=== PATIENT | female | born 1945 | race Caucasian/White ===

== ENCOUNTER 2019-09-22 05:10 | Inpatient (IN) ==
[2019-09-22] MEDS ORDERED: IPRATROPIUM/ALBUTEROL 3 ML AMPUL.NEB NEB ONE ×2 (05:33→14:29)
[2019-09-22] MEDS ORDERED: LACTATED RINGERS 1,000 ML IV ONE (05:33)
[2019-09-22] MEDS ORDERED: methylPREDNISolone SOD SUCC 125 MG/2 ML VIAL IV ONE (05:33)
--- NOTE | 2019-09-22 05:38 | Emergency Department Note ---
SOB HPI - General Chief Complaint: Shortness of Breath/Dyspnea Stated Complaint: SOB Time Seen by Provider: 09/22/19 05:20 Source: patient, family Mode of arrival: ambulatory Limitations: no limitations - History of Present Illness Complains of shortness of breath for the last 2 days. A little bit of chest tightness, she does have a history of COPD, has oxygen at home and uses it at nighttime. Has some body aches, low-grade fever, slight sore throat not associated with nausea vomiting or diarrhea. Denies abdominal pain, no henna chest pain. She did quit smoking the past, was successful for 5 years after hypnosis session in [place], but then started up again and has been smoking since. Now she quit 2 days ago at the first of the year. When she arrived in triage her O2 sats were 70% on room air. She quickly bounced back to now 100% on 2 L of oxygen. Feels much better at this time. does not smoke. Denies headache, denies ear pain, she's had no abdominal pain, no ankle swelling, no history of CHF. MD Complaint: shortness of breath - Related Data Home Medications Medication Instructions Recorded Confirmed albuterol sulfate 90 mcg/actuation 2 puff INHALATION .Q4-6H PRN g 05/08/19 07/25/19 aerosol inhaler cholecalciferol (vitamin D3) 25 1,000 unit PO QDAY 05/08/19 07/25/19 mcg (1,000 unit) capsule hydrochlorothiazide 12.5 mg tablet 12.5 mg PO QAM tab 05/08/19 07/25/19 levothyroxine 88 mcg tablet 88 mcg PO QDAY 05/08/19 07/25/19 multivitamin 1 tab PO QDAY 05/08/19 07/25/19 omega-3 fatty acids 1,000 mg 2,000 mg PO QDAY 05/08/19 07/25/19 capsule primidone 50 mg tablet 50 mg PO .Q2XD tab 05/08/19 07/25/19 sodium chloride 0.65 % nasal spray See Rx Instructions INTRANASAL QHS 05/08/19 07/25/19 aerosol ml umeclidinium 62.5 mcg-vilanterol 1 inh INHALATION Q24H 05/08/19 07/25/19 25 mcg/actuation powdr for inhalation Previous Rx's Medication Instructions Recorded amlodipine 5 mg tablet 5 mg PO QDAY #90 tab 08/16/19 aripiprazole 5 mg tablet 2.5 mg PO QDAY #45 tab 08/16/19 losartan 50 mg tablet 50 mg PO QDAY #90 tab 08/16/19 pravastatin 80 mg tablet 80 mg PO QDAY #90 tab 08/16/19 escitalopram oxalate 20 mg tablet 10 mg PO QDAY #30 tab 09/04/19 Allergies Allergy/AdvReac Type Severity Reaction Status Date / Time cetirizine [From Zyrtec] AdvReac Unknown Palpitation Verified 09/22/19 05:14 s enalaprilat [From Vasotec] AdvReac Unknown Unknown Verified 09/22/19 05:14 Erythromycin Base AdvReac Unknown Hallucinati Verified 09/22/19 06:33 ng Sulfa (Sulfonamide AdvReac Unknown Unknown Verified 09/22/19 05:14 Antibiotics) Review of Systems All systems ED: reviewed and negative except as stated. Constitutional: Reports: fever, weakness ENT ED: Reports: throat pain, congestion, rhinorrhea. Denies: ear pain, dental pain, epistaxis Cardiovascular: Reports: dyspnea on exertion. Denies: chest pain Respiratory: Reports: shortness of breath, cough, other (cough is mainly nonproductive) Gastrointestinal: Denies: abdominal pain, nausea, vomiting Genitourinary: Denies: dysuria Musculoskeletal: Denies: back pain Integumentary: Denies: rash Neurological: Denies: headache Past Medical History - Past Medical History Source: old records reviewed, nursing notes reviewed Medical history: Reports: COPD, hypertension Psychiatric history: Reports: no psych history RETIREMENT ASSISTANT history: Reports: non-contributory Surgical history ED: Reports: non-contributory Family history: Reports: no significant family history - Social History smoking status: Former smoker Alcohol use: Reports: Occasionally Drug use: Reports: none Physical Exam Limitations: no limitations General appearance: alert Head: atraumatic, normocephalic Eye: Present: normal appearance, PERRL, EOMI. Absent: conjunctival injection ENT: Present: normal exam, normal oropharynx Neck: Present: normal inspection, full ROM Chest: Present: normal inspection, symmetric chest wall rise Respiratory: Present: wheezes, accessory muscle use, prolonged expiratory phase, decreased breath sounds. Absent: respiratory distress, rales/crackles Cardiovascular: Present: regular rate, normal rhythm, tachycardia, normal heart sounds Abdominal: Present: soft, normal bowel sounds. Absent: distention, tenderness, guarding Extremities: Present: normal inspection, normal capillary refill. Absent: pedal edema, calf tenderness, cyanosis, clubbing Back: Present: normal inspection. Absent: CVA tenderness (R), CVA tenderness (L), vertebral tenderness Neurological: Present: alert, oriented X3, CN II-XII intact. Absent: motor sensory deficit Psychiatric: Present: normal affect Skin: Present: warm, dry, normal color Course - Reevaluation(s) Reevaluation #1: Chest x-ray consistent with pneumonia, right-sided. Blood cultures were drawn. The. She was started on antibiotics also given Solu-Medrol for wheezing, breathing treatments. The. This did seem to help and the wheezing has improved. She stumbled oxygen at this time. We'll need to get admitted for COPD exacerbation as well as right sided pneumonia. This was discussed with the [facility]. The hospital was full at this time, but they are trying to move some patients, so that we will have roomfor Mrs. Haynes Vital Signs Temperature 99.0 F 09/22/19 05:10 Pulse Rate 111 H 09/22/19 05:10 Respiratory Rate 26 H 09/22/19 05:10 Blood Pressure 162/67 09/22/19 05:10 Pulse Oximetry (%) 77 L 09/22/19 05:10 Temperature 99.0 F 09/22/19 05:10 Pulse Rate 100 H 09/22/19 06:46 Respiratory Rate 21 09/22/19 06:46 Blood Pressure 117/50 09/22/19 06:46 Pulse Oximetry (%) 91 09/22/19 06:46 Shortness of Breath/Dyspnea - MDM Narrative Medical decision making narrative: Impression is pneumonia, right-sided. #2. COPD exacerbation. #3. Hyponatrem ia - Lab Data Lab results reviewed: Yes I reviewed the patient's lab results. Result diagrams: 09/22/19 05:47 09/22/19 05:47 Lab Results 09/22/19 09/22/19 09/22/19 Range/Units 05:47 05:47 06:20 WBC 9.3 (4.50-11.00) K/mcL RBC 4.39 (3.59-5.38) M/mcL Hgb 13.5 (11.2-15.7) g/dL Hct 39.1 (34.1-44.9) % MCV 89.1 (80.0-100.0) fL MCH 30.8 (26.0-34.0) pg MCHC 34.5 (31.0-36.0) g/dL RDW 13.6 (11.5-14.5) % Plt Count 321 (140-440) K/mcL MPV 9.8 (7.4-10.4) fL Gran % 89.4 H (38.0-78.0) % Lymph % (Auto) 6.5 L (15.5-49.0) % [place] % (Auto) 3.1 (1.0-12.0) % Eos % (Auto) 0.8 (0.0-7.0) % Baso % (Auto) 0.2 (0.0-2.0) % Gran # 8.31 H (1.80-8.00) K/mcL Lymph # (Auto) 0.60 L (1.50-4.80) K/mcL [place] # (Auto) 0.29 (0.10-0.90) K/mcL Eos # (Auto) 0.07 (0.00-0.70) K/mcL Baso # (Auto) 0.02 (0.00-0.30) K/mcL VBG Lactic Acid 1.4 (0.5-2.0) mmol/L Sodium 125 L (133-145) mmol/L Potassium 3.6 (3.3-5.1) mmol/L Chloride 87 L (96-108) mmol/L Carbon Dioxide 22 (22-30) mmol/L Anion Gap 16.0 (8-16) BUN 10 (8-23) mg/dl Creatinine 0.7 (0.6-1.1) mg/dl GFR Calculation 86 Glucose 130 H (70-105) mg/dL Calcium 9.4 (8.6-10.4) mg/dl Total Bilirubin 0.3 (0.0-1.0) mg/dL AST 29 (0-37) U/l ALT 18 (0-40) U/l Alkaline Phosphatase 72 (39-117) U/L C-Reactive Protein 16.5 H (0.0-0.8) mg/dl Total Protein 7.7 (5.9-8.4) gm/dL Albumin 4.4 (3.2-5.2) gm/dL Globulin 3.3 (2.2-3.7) gm/dL Albumin/Globulin Ratio 1.3 (1.0-2.3) - Radiology Data Radiology results reviewed: Yes I reviewed the patient's radiology results. Disposition Pt seen by STAFFING OPERATIONS MANAGER/PA only: No Clinical Impression: Community acquired pneumonia, Acute exacerbation of chronic obstructive airways disease, Hyponatremia Disposition: Xfer As Inpt ([facility]) Condition: Fair Referrals: Chiquita Carrillo ARNP [Primary Care Provider] -
[2019-09-22] MEDS ORDERED: cefTRIAXone 1 GM VIAL IV ONE ×2 (06:20→14:45)
[2019-09-22] MEDS ORDERED: AZITHROMYCIN 500 MG in DEXTROSE 5% IN WATER 250 ML IV ONE (06:20)
[2019-09-22 06:25] LABS: Basophils # (Auto) 0.02 K/mcL (0.00-0.30); Basophils % (Auto) 0.2 % (0.0-2.0); Eosinophils # (Auto) 0.07 K/mcL (0.00-0.70); Eosinophils % (Auto) 0.8 % (0.0-7.0); Granulocytes % (Auto) 89.4 % (38.0-78.0); Hematocrit 39.1 % (34.1-44.9); Hemoglobin 13.5 g/dL (11.2-15.7); Lymphocytes % (Auto) 6.5 % (15.5-49.0); Mean Cell Volume 89.1 fL (80.0-100.0); Mean Corpuscular HGB Conc 34.5 g/dL (31.0-36.0); Mean Platelet Volume 9.8 fL (7.4-10.4); Monocytes # (Auto) 0.29 K/mcL (0.10-0.90); Monocytes % (Auto) 3.1 % (1.0-12.0); Platelet Count 321 K/mcL (140-440); RBC 4.39 M/mcL (3.59-5.38); Red Cell Distribution Width 13.6 % (11.5-14.5); WBC 9.3 K/mcL (4.50-11.00)
--- NOTE | 2019-09-22 06:26 | XRay Report ---
CLINICAL INFORMATION: dyspnea COMPARISON: None. FINDINGS: Heart size, mediastinum and pulmonary vessels are unremarkable. There are large patchy alveolar infiltrates throughout the right upper, superior right lower and middle lobes. Small right pleural effusion noted. Left lung shows only mild subsegmental atelectasis in the lower lobe. Bones and soft tissues are unremarkable. IMPRESSION: Large patchy alveolar infiltrate throughout the right upper lobe, superior segment right lower lobe and right middle lobe. Interpreted and Authenticated by: Isaias Davidson 09/22/19
[2019-09-22 06:49] LABS: ALT/SGPT 18 U/l (0-40); AST/SGOT 29 U/l (0-37); Albumin 4.4 gm/dL (3.2-5.2); Albumin/Globulin Ratio 1.3 (1.0-2.3); Alkaline Phosphatase 72 U/L (39-117); Bilirubin,Total 0.3 mg/dL (0.0-1.0); Blood Urea Nitrogen 10 mg/dl (8-23); C-Reactive Protein 16.5 mg/dl (0.0-0.8); Calcium 9.4 mg/dl (8.6-10.4); Carbon Dioxide 22 mmol/L (22-30); Chloride 87 mmol/L (96-108); Globulin 3.3 gm/dL (2.2-3.7); Glomerular Filtration Rate 86; Glucose 130 mg/dL (70-105)
[2019-09-22] MEDS ORDERED: 0.9 % SODIUM CHLORIDE 1,000 ML IV SCH (08:00)
--- NOTE | 2019-09-22 11:27 | Emergency Department Note ---
ED Note Addendum Note Addendum: Received this patient in checkout from Dr. Jaime. Agree with his decision to admit after reviewing her chart. Hospitalist was contacted
--- NOTE | 2019-09-22 13:04 | Internal Med History&Physical ---
Medical - H&P: HPI Patient information: Note initiated : 09/22/19 at 1:01 pm Service Date, if different from initiated Date: [] Patient: Marielos Haynes a 74 y/o F admitted on for Shortness of breath. Chief Complaint: [] History of present illness: Ms. Haynes is a 74 year old F Who states that she felt like she was developing a cold monitor Wednesday and Wednesday she developed a productive cough of yellow sputum and increased shortness of breath this continued to worsen she slept poorly last night and with the worsening shortness of breath she called her son who brought her into the ED. She had oxygen saturations 70 was 77% initially. She responded initially to treatments in the ED but still required oxygen supplementation to maintain saturations. She has had a son and a grandson that is been sick. Is felt feverish Chest x-ray showed moderate right-sided infiltrate. She does report feeling like food goes down "the wrong pip"e once a week usually with foods as opposed to drinks. In the ED she was also found to be hyponatremic but this appears chronic. She is on a hydrochlorothiazide. Still smoking. Review of Systems: Pertinent positives as above. Denies headache/nausea/vomiting/chest or abdominal pain/diarrhea. Remaining 10 point review of system reviewed negative Medical - H&P: PMH Medical history: Medical History (Last Updated 07/25/19 @ 10:06 by Andrew Hester CMA) Encounter for screening for malignant neoplasm of vagina (Chronic) GERD (gastroesophageal reflux disease) (Chronic) Medication monitoring encounter (Chronic) Hypothyroidism (Chronic) Rhinitis, allergic (Chronic) Screening for malignant neoplasm of colon (Chronic) Nosebleed (Chronic) Anemia (Chronic) Stress (Chronic) Fatigue (Chronic) HTN (hypertension) (Chronic) Tinnitus (Chronic) Hearing deficit (Chronic) Smoker (Chronic) Hypertriglyceridemia (Chronic) Anxiety (Chronic) Depression (Chronic) Hyperlipidemia (Chronic) COPD (chronic obstructive pulmonary disease) (Chronic) Tremor, essential (Chronic) After cataract, bilateral (Acute ~04/2019) Past Surgical History (Last Reviewed 07/25/19 @ 10:05 by Andrew Hester CMA) Hx of blepharoplasty (Acute ~06/2017) Hx of breast biopsy (Acute ~2013) Hx of hysterectomy (Acute) Family History (Last Reviewed 07/25/19 @ 10:05 by Andrew Hester CMA) Mother No problems noted. Father Alzheimers disease Social History (Last Updated 07/26/19 @ 09:18 by YASMIN Woods) Smokes half a pack to pack cigarettes per day Denies alcohol use Lives by her self Medical - H&P: Meds Home Medications Medication Instructions Recorded Confirmed Type albuterol sulfate 90 mcg/actuation 2 puff INHALATION .Q4-6H PRN g 05/08/19 07/25/19 History aerosol inhaler cholecalciferol (vitamin D3) 25 1,000 unit PO QDAY 05/08/19 07/25/19 History mcg (1,000 unit) capsule hydrochlorothiazide 12.5 mg tablet 12.5 mg PO QAM tab 05/08/19 09/22/19 History levothyroxine 88 mcg tablet 88 mcg PO QDAY 05/08/19 09/22/19 History multivitamin 1 tab PO QDAY 05/08/19 09/22/19 History omega-3 fatty acids 1,000 mg 2,000 mg PO QDAY 05/08/19 09/22/19 History capsule primidone 50 mg tablet 50 mg PO BID tab 05/08/19 09/22/19 History sodium chloride 0.65 % nasal spray See Rx Instructions INTRANASAL QHS 05/08/19 07/25/19 History aerosol ml umeclidinium 62.5 mcg-vilanterol 1 inh INHALATION Q24H 05/08/19 09/22/19 History 25 mcg/actuation powdr for inhalation amlodipine 5 mg tablet 5 mg PO QDAY #90 tab 08/16/19 09/22/19 Rx aripiprazole 5 mg tablet 2.5 mg PO QDAY #45 tab 08/16/19 Rx losartan 50 mg tablet 50 mg PO QDAY #90 tab 08/16/19 09/22/19 Rx pravastatin 80 mg tablet 80 mg PO QDAY #90 tab 08/16/19 09/22/19 Rx Aripiprazole [Abilify] 2.5 mg PO DAILY 09/22/19 09/22/19 History Escitalopram Oxalate [Lexapro] 20 mg PO QDAY 09/22/19 09/22/19 History Allergies Allergy/AdvReac Type Severity Reaction Status Date / Time [facility]izine [[facility]] AdvReac Unknown Palpitation Verified 09/22/19 05:14 s enalaprilat [From Vasotec] AdvReac Unknown Unknown Verified 09/22/19 05:14 Erythromycin Base AdvReac Unknown Hallucinati Verified 09/22/19 06:33 ng Sulfa (Sulfonamide AdvReac Unknown Unknown Verified 09/22/19 05:14 Antibiotics) Medical - H&P: Exam - Constitutional Vitals: Temp Pulse Resp BP Pulse Ox 99.0 F 84 22 118/58 96 09/22/19 05:10 09/22/19 12:46 09/22/19 12:46 09/22/19 12:46 09/22/19 12:46 Exam: General: Alert, Awake, No acute Distress Eyes/N/T: EOMI, PERRL, MM Head/Neck: neck supple, normocephalic atraumatic CV: RRR, No murmurs, normal s1/s2 Pulm: severely diminished on the right, minimal occasional wheez Abd: soft, nontender, +BS x4 Ext: no clubbing/cyanosis/edema Neuro: Alert, no focal deficits, moves all extremities, CN 2-12 grossly intact, symmetrical strength b/l upper/lower, sensations intact b/l upper/lower Skin: warm/dry Medical - H&P: Reslt - Labs CBC & Chem 7: 09/22/19 05:47 09/22/19 05:47 Labs: Short CBC 09/22/19 Range/Units 05:47 WBC 9.3 (4.50-11.00) K/mcL Hgb 13.5 (11.2-15.7) g/dL Hct 39.1 (34.1-44.9) % Plt Count 321 (140-440) K/mcL BMP 09/22/19 05:47 Sodium 125 L Potassium 3.6 Chloride 87 L Carbon Dioxide 22 BUN 10 Creatinine 0.7 Glucose 130 H Calcium 9.4 Liver Function 09/22/19 Range/Units 05:47 Total Bilirubin 0.3 (0.0-1.0) mg/dL AST 29 (0-37) U/l ALT 18 (0-40) U/l Alkaline Phosphatase 72 (39-117) U/L Albumin 4.4 (3.2-5.2) gm/dL Medical - H&P: A/P - Narrative A/P Narrative: A: *PNA *Acute hypoxic respiratory failure: *COPD(2L@night at home): *Hyponatremia, chronic: But worsened from previous labs -is on SSRI and HCTZ *HTN/HLD: *Hypothyroidism: check TSH *Depression/anxiety: *Tobacco abuse: P: -Rocephin/azithromycin -Pending blood culture/sputum culture -ST eval, dysphagia diet -IS/Acapella -Urine studies -monitor sodium, hold HCTZ - -Smoking cessation counseling -ppx: Lovenox full code
[2019-09-22 13:14] LABS: Band Neutrophils % 25 % (0-10); Basophils % (Manual) 1 % (0-2); Lymphocytes % 12 % (15-49); Monocytes % (Manual) 4 % (1-12); Platelet Estimate NORMAL (NORMAL); RBC Morphology NORMAL (NORMAL); Reactive Lymphocytes 1 % (0-2); Segmented Neutrophils % 57 % (38-78)
[2019-09-22] MEDS ORDERED: POTASSIUM CHLORIDE 20 MEQ TABLET PO PRN ×2 (14:29)
[2019-09-22] MEDS ORDERED: SENNOSIDES 1 TABLET PO PRN (14:29)
[2019-09-22] MEDS ORDERED: ONDANSETRON 4 MG/2 ML VIAL IV PRN (14:29)
[2019-09-22] MEDS ORDERED: LACTULOSE 20 GM/30 ML ORAL.SOL PO PRN (14:29)
[2019-09-22] MEDS ORDERED: POLYETHYLENE GLYCOL 3350 17 GM PACKET PO PRN (14:29)
[2019-09-22] MEDS ORDERED: SODIUM CHLORIDE 1 GM TABLET PO ONE (14:29)
[2019-09-22] MEDS ORDERED: MAGNESIUM SULFATE 2 GM/50 ML BAG IV PRN (14:29)
[2019-09-22] MEDS ORDERED: ACETAMINOPHEN 325 MG TABLET PO PRN (14:29)
[2019-09-22] MEDS ORDERED: POTASSIUM CHLORIDE 40 MEQ in DEXTROSE 5% IN WATER 500 ML IV PRN (14:29)
[2019-09-22] MEDS: 0.9 % SODIUM CHLORIDE 10 ML SYRINGE IV SCH ×2 (15:40→22:40)
[2019-09-22] MEDS: SODIUM CHLORIDE 1 GM TABLET PO SCH ×2 (15:41→20:13)
[2019-09-22] MEDS: PRIMIDONE 50 MG TABLET PO SCH (20:13)
[2019-09-22] MEDS: IPRATROPIUM/ALBUTEROL 3 ML AMPUL.NEB NEB PRN (20:32)
[2019-09-22] MEDS ORDERED: PRAVASTATIN 40 MG TABLET PO SCH (21:00)
[2019-09-22] MEDS ORDERED: DOCUSATE SODIUM 100 MG CAPSULE PO SCH (21:00)
[2019-09-23] MEDS: 0.9 % SODIUM CHLORIDE 10 ML SYRINGE IV SCH ×3 (06:35→22:03)
--- NOTE | 2019-09-23 07:10 | Internal Med Progress Note ---
Medical - PN: Subj Patient information: Note initiated : 09/23/19 at 7:06 am Service Date, if different from initiated Date: [] Patient: Marielos Haynes a 74 y/o F admitted on 09/22/19 for Shortness of breath. Chief Complaint: [] Interval history: Ms. Haynes is a 74 year old F Who states that she felt like she was developing a cold monitor Wednesday and Wednesday she developed a productive cough of yellow sputum and increased shortness of breath this continued to worsen she slept poorly last night and with the worsening shortness of breath she called her son who brought her into the ED. She had oxygen saturations 70 was 77% initially. She responded initially to treatments in the ED but still required oxygen supplementation to maintain saturations. She has had a son and a grandson that is been sick. Is felt feverish Chest x-ray showed moderate right-sided infiltrate. She does report feeling like food goes down "the wrong pip"e once a week usually with foods as opposed to drinks. In the ED she was also found to be hyponatremic but this appears chronic. She is on a hydrochlorothiazide. Still smoking. 09/23 Still with productive cough and shortness of breath with wheezing. She states she feels may be a little better. She developed some diarrhea last night. Respiratory viral panel positive for human metapneumovirus. Review of Systems: denies headache/fever/chills/nausea/vomiting/chest or abdominal pain. Otherwise see above. - Constitutional Vitals: Vital Signs Temp Pulse Resp BP Pulse Ox 98.2 F 85 20 135/80 94 09/23/19 04:00 09/23/19 04:00 09/23/19 04:00 09/23/19 04:00 09/23/19 04:00 Period Temp Pulse Resp BP Sys/Dawkins Pulse Ox Last 24 Hr 98.0 F-98.2 F 78-96 16-28 111-137/43-97 89-97 Intake and Output 09/22/19 09/23/19 09/23/19 21:59 05:59 13:59 Intake Total 1021 200 Output Total 310 600 Balance 711 -400 Weight 69.899 kg Intake & Output: Intake & Output 09/22/19 09/23/19 09/23/19 21:59 05:59 13:59 Intake Total 1021 200 Output Total 310 600 Balance 711 -400 Weight 69.899 kg Intake: IV 321 Sodium Chloride 0.9% 1,000 ml @ 321 50 mls/hr IV .Q20H [facility] Rx#: [id number] Oral 700 200 Output: Void Amount 310 600 Other: Meal Dinner Percent of Meal Consumed 50% Feeding Ability Assist with Tray Set Up Urine Appearance Clear Urine Color Dark Yellow Urine Odor Normal Stool Size Small Small Stool Color Brown Brown Yellow Stool Consistency Loose Soft # Voids 1 # Bowel Movements 1 Exam: General: Alert, Awake, No acute Distress Eyes/N/T: EOMI, Head/Neck: neck supple, CV: RRR, No murmurs, Pulm: diminished on the right with rhonchi/exp wheezing. also exp wheezing on left Abd: soft, nontender, +BS x4 Ext: no clubbing/cyanosis/edema Neuro: Alert, no focal deficits, moves all extremities, Skin: warm/dry Medical - PN: Obj Da - Labs CBC & Chem 7: 09/23/19 06:18 09/23/19 06:18 Labs: Abnormal Lab Results 09/22/19 09/22/19 09/22/19 12:55 05:47 05:47 Gran % Lymph % (Auto) Gran # Lymph # (Auto) Band Neutrophils % 25 H Lymphocytes % 12 L Sodium 125 L Chloride 87 L Glucose 130 H Osmolality 271 L C-Reactive Protein 16.5 H 09/22/19 05:47 Gran % 89.4 H Lymph % (Auto) 6.5 L Gran # 8.31 H Lymph # (Auto) 0.60 L Band Neutrophils % Lymphocytes % Sodium Chloride Glucose Osmolality C-Reactive Protein Meds: Medications Acetaminophen (Tylenol) 650 mg PO Q6HP PRN PRN Reason: PAIN/FEVER > 101 Albuterol/Ipratropium (Duoneb) 3 ml NEB Q4HP PRN PRN Reason: Shortness Of Breath Last Admin: 09/22/19 20:32 Dose: 3 ml Documented by: Amlodipine Besylate (Norvasc) 5 mg PO QDAY [facility] Atorvastatin Calcium (Lipitor) 20 mg PO DAILY [facility] Docusate Sodium (Colace) 100 mg PO BID [facility] Last Admin: 09/22/19 20:13 Dose: 100 mg Documented by: Enoxaparin Sodium (Lovenox) 40 mg SQ DAILY [facility] Escitalopram Oxalate (Lexapro) 20 mg PO QDAY [facility] Potassium Chloride 40 meq/ (Dextrose) 520 mls @ 130 mls/hr IV UD PRN PRN Reason: Potassium < 3 Ceftriaxone Sodium 2 gm/ (Dextrose) 50 mls @ 100 mls/hr IV DAILY [facility]; Protocol Azithromycin 500 mg/ Dextrose 250 mls @ 250 mls/hr IV DAILY [facility]; Protocol Stop: 09/24/19 09:59 Magnesium Sulfate (Magnesium Sulfate) 2 gm in 50 mls @ 50 mls/hr IV UD PRN PRN Reason: Magnesium </= 1.6 Lactulose (Cephulac) 20 gm PO DAILYP PRN PRN Reason: Constipation Levothyroxine Sodium (Synthroid) 88 mcg PO ACB [facility] Losartan Potassium (Cozaar) 50 mg PO QDAY [facility] Ondansetron HCl (Zofran) 4 mg IV Q4HP PRN PRN Reason: Nausea And Vomiting Anoro Ellipta 1 (Inhaler) 1 dose INH DAILY [facility] Polyethylene Glycol (Miralax) 17 gm PO DAILYP PRN PRN Reason: Constipation Potassium Chloride (Kdur) 40 meq PO UD PRN PRN Reason: Potssium is 3-3.5 Potassium Chloride (Kdur) 40 meq PO UD PRN PRN Reason: Potassium < 3 Primidone (Mysoline) 50 mg PO BID [facility] Last Admin: 09/22/19 20:13 Dose: 50 mg Documented by: [place] (Senokot) 2 tab PO DAILYP PRN PRN Reason: Constipation Sodium Chloride (Saline Flush) 10 ml IV Q8 [facility] Last Admin: 09/23/19 06:35 Dose: Not Given Documented by: Sodium Chloride (Sodium Chloride) 1 gm PO TID [facility] Stop: 09/23/19 21:01 Last Admin: 09/22/19 20:13 Dose: 1 gm Documented by: Medical - PN: A/P - Time Spent With Patient Total time spent is greater than 50% in coordination of care (as documented) at patient's floor/unit and/or counseling patient: - Narrative A/P Narrative: A: *PNA & (+)Human Metapneumovirus: *Acute hypoxic respiratory failure: -on 2L NC *AECOPD(2L@night at home): *Oropharyngeal Dysphagia,mild: *Hyponatremia, chronic: But worsened from previous labs -is on SSRI and HCTZ -improved *HTN/HLD: *Hypothyroidism: TSH wnl *Depression/anxiety: *Tobacco abuse: P: -Rocephin/azithromycin -Pending blood culture/sputum culture -IS/Acapella -Urine studies -monitor sodium, hold HCTZ -Dysphagia diet per ST -f/u cxr -Smoking cessation counseling -ppx: Lovenox full code Medical - PN: Qual - VTE Deep Vein Thrombosis/Pulmonary Embolism Present on Admission: No
[2019-09-23 07:29] LABS: Hematocrit 33.3 % (34.1-44.9); Hemoglobin 11.2 g/dL (11.2-15.7); Mean Cell Volume 90.2 fL (80.0-100.0); Mean Corpuscular HGB Conc 33.6 g/dL (31.0-36.0); Mean Platelet Volume 9.5 fL (7.4-10.4); Platelet Count 297 K/mcL (140-440); RBC 3.69 M/mcL (3.59-5.38); Red Cell Distribution Width 13.9 % (11.5-14.5); WBC 9.4 K/mcL (4.50-11.00)
[2019-09-23] MEDS: LEVOTHYROXINE 88 MCG TABLET PO SCH (07:31)
[2019-09-23 07:34] LABS: ALT/SGPT 19 U/l (0-40); AST/SGOT 32 U/l (0-37); Albumin 3.6 gm/dL (3.2-5.2); Albumin/Globulin Ratio 1.2 (1.0-2.3); Alkaline Phosphatase 59 U/L (39-117); Bilirubin,Direct < 0.2 mg/dL (0.0-0.3); Bilirubin,Total 0.2 mg/dL (0.0-1.0); Blood Urea Nitrogen 14 mg/dl (8-23); Carbon Dioxide 24 mmol/L (22-30); Glomerular Filtration Rate 86; Glucose 108 mg/dL (70-105); Lactate Dehydrogenase 306 U/L (94-250); Phosphorous 3.1 mg/dL (2.7-4.5); Triglycerides 80 mg/dl (<150); Uric Acid 3.6 mg/dL (2.5-8.0)
[2019-09-23 07:38] LABS: Chloride 92 mmol/L (96-108)
[2019-09-23] MEDS: IPRATROPIUM/ALBUTEROL 3 ML AMPUL.NEB NEB PRN ×2 (07:40→22:16)
[2019-09-23 08:12] LABS: Band Neutrophils % 1 % (0-10); Lymphocytes % 7 % (15-49); Monocytes % (Manual) 2 % (1-12); Platelet Estimate NORMAL (NORMAL); RBC Morphology NORMAL (NORMAL); Segmented Neutrophils % 90 % (38-78)
[2019-09-23] MEDS ORDERED: methylPREDNISolone SOD SUCC 125 MG/2 ML VIAL IV ONE (08:24)
[2019-09-23] MEDS: cefTRIAXone 2 GM in DEXTROSE 5% IN WATER 50 ML IV SCH (08:52)
[2019-09-23] MEDS: ENOXAPARIN 40 MG/0.4 ML SYRINGE SQ SCH (08:52)
[2019-09-23] MEDS: ARIPIPRAZOLE 5 MG TABLET PO SCH (08:53)
[2019-09-23] MEDS: ATORVASTATIN 20 MG TABLET PO SCH (08:53)
[2019-09-23] MEDS: SODIUM CHLORIDE 1 GM TABLET PO SCH ×3 (08:53→22:03)
[2019-09-23] MEDS: LOSARTAN 50 MG TABLET PO SCH (08:53)
[2019-09-23] MEDS: PRIMIDONE 50 MG TABLET PO SCH ×2 (08:53→22:03)
[2019-09-23] MEDS: amLODIPine 5 MG TABLET PO SCH (08:53)
[2019-09-23] MEDS: ESCITALOPRAM 20 MG TABLET PO SCH (08:53)
[2019-09-23] MEDS: LACTOBACILLUS 1 CAPSULE PO SCH ×2 (08:53→22:02)
[2019-09-23] MEDS: ANORO ELLIPTA INH SCH (08:55)
[2019-09-23] MEDS ORDERED: ARIPIPRAZOLE 2.5 MG PO SCH (09:00)
[2019-09-23] MEDS: AZITHROMYCIN 500 MG in DEXTROSE 5% IN WATER 250 ML IV SCH (09:53)
--- NOTE | 2019-09-23 11:12 | XRay Report ---
CLINICAL INFORMATION: Pneumonia COMPARISON: 09/22/2019 FINDINGS: Heart size, mediastinum and pulmonary vessels are normal. Large alveolar infiltrate throughout the right upper lobe, superior segment right lower lobe and right middle lobe has worsened considerably since yesterday. Smaller patchy left perihilar infiltrate is new. Small bilateral pleural effusions have developed. IMPRESSION: Large infiltrate throughout the right upper lobe, superior segment right lower lobe and right middle lobe worsening from yesterday. New moderate left perihilar infiltrate Interpreted and Authenticated by: Isaias Davidson 09/23/19
[2019-09-23] MEDS: IPRATROPIUM/ALBUTEROL 3 ML AMPUL.NEB NEB SCH ×2 (12:00→19:06)
[2019-09-23] MEDS: methylPREDNISolone SOD SUCC 40 MG/ML VIAL IV SCH ×2 (14:27→22:03)
[2019-09-24] MEDS: IPRATROPIUM/ALBUTEROL 3 ML AMPUL.NEB NEB SCH ×4 (01:01→19:16)
[2019-09-24] MEDS: methylPREDNISolone SOD SUCC 40 MG/ML VIAL IV SCH ×3 (06:36→21:32)
[2019-09-24] MEDS: 0.9 % SODIUM CHLORIDE 10 ML SYRINGE IV SCH ×3 (06:36→21:32)
[2019-09-24 07:21] LABS: Blood Urea Nitrogen 12 mg/dl (8-23); Calcium 9.1 mg/dl (8.6-10.4); Carbon Dioxide 23 mmol/L (22-30); Glomerular Filtration Rate 90; Glucose 173 mg/dL (70-105)
[2019-09-24 07:22] LABS: Chloride 92 mmol/L (96-108)
--- NOTE | 2019-09-24 07:39 | Internal Med Progress Note ---
Medical - PN: Subj Patient information: Note initiated : 09/24/19 at 7:34 am Service Date, if different from initiated Date: [] Patient: Marielos Haynes a 74 y/o F admitted on 09/22/19 for Shortness of breath. Chief Complaint: [] Interval history: Ms. Haynes is a 74 year old F Who states that she felt like she was developing a cold monitor Wednesday and Wednesday she developed a productive cough of yellow sputum and increased shortness of breath this continued to worsen she slept poorly last night and with the worsening shortness of breath she called her son who brought her into the ED. She had oxygen saturations 70 was 77% initially. She responded initially to treatments in the ED but still required oxygen supplementation to maintain saturations. She has had a son and a grandson that is been sick. Is felt feverish Chest x-ray showed moderate right-sided infiltrate. She does report feeling like food goes down "the wrong pip"e once a week usually with foods as opposed to drinks. In the ED she was also found to be hyponatremic but this appears chronic. She is on a hydrochlorothiazide. Still smoking. 09/23 Still with productive cough and shortness of breath with wheezing. She states she feels may be a little better. She developed some diarrhea last night. Respiratory viral panel positive for human metapneumovirus. 09/24 Patient reports cough is more dry now and improving per her. Stated shortness of breath is still present a little bit better than yesterday. Placed on 1 L nasal cannula this morning. Review of Systems: denies headache/fever/chills/nausea/vomiting/chest or abdominal pain. Otherwise see above. - Constitutional Vitals: Vital Signs Temp Pulse Resp BP Pulse Ox 97.8 F 86 20 133/73 90 09/24/19 06:58 09/24/19 06:53 09/24/19 06:58 09/24/19 06:58 09/24/19 06:58 Period Temp Pulse Resp BP Sys/Dawkins Pulse Ox Last 24 Hr 97.7 F-98.8 F 70-88 16-26 131-140/60-80 90-94 Intake and Output 09/23/19 09/24/19 09/24/19 21:59 05:59 13:59 Intake Total 400 Output Total 500 600 800 Balance -500 -200 -800 Weight 70.851 kg Intake & Output: Intake & Output 09/23/19 09/24/19 09/24/19 21:59 05:59 13:59 Intake Total 400 Output Total 500 600 800 Balance -500 -200 -800 Weight 70.851 kg Intake: Oral 400 Output: Void Amount 500 600 800 Other: Urine Appearance Clear Clear Clear Urine Color Bright Yellow Bright Yellow Bright Yellow Urine Odor Normal Normal Normal Stool Size Small Stool Color Brown Stool Consistency Soft Liquid # Voids 2 # Bowel Movements 1 Exam: General: Alert, Awake, No acute Distress Eyes/N/T: EOMI, Head/Neck: neck supple, CV: RRR, No murmurs, Pulm: mild b/l rhonchi/wheezing slowly improving, diminished R>L Abd: soft, nontender, +BS x4 Ext: no clubbing/cyanosis/edema Neuro: Alert, no focal deficits, moves all extremities, Skin: warm/dry Medical - PN: Obj Da - Labs CBC & Chem 7: 09/23/19 06:18 09/24/19 06:08 Labs: Abnormal Lab Results 09/24/19 09/23/19 09/23/19 06:08 06:18 06:18 Hct Gran % Lymph % (Auto) Gran # Lymph # (Auto) Seg Neutrophils % Band Neutrophils % Lymphocytes % Sodium 129 L 130 L Chloride 92 L 92 L Glucose 173 H 108 H Osmolality Lactate Dehydrogenase 306 H C-Reactive Protein Cortisol AM Sample 20.5 H 09/23/19 09/22/19 09/22/19 06:18 12:55 05:47 Hct 33.3 L Gran % Lymph % (Auto) Gran # Lymph # (Auto) Seg Neutrophils % 90 H Band Neutrophils % 25 H Lymphocytes % 7 L 12 L Sodium Chloride Glucose Osmolality 271 L Lactate Dehydrogenase C-Reactive Protein Cortisol AM Sample 09/22/19 09/22/19 05:47 05:47 Hct Gran % 89.4 H Lymph % (Auto) 6.5 L Gran # 8.31 H Lymph # (Auto) 0.60 L Seg Neutrophils % Band Neutrophils % Lymphocytes % Sodium 125 L Chloride 87 L Glucose 130 H Osmolality Lactate Dehydrogenase C-Reactive Protein 16.5 H Cortisol AM Sample Meds: Medications Acetaminophen (Tylenol) 650 mg PO Q6HP PRN PRN Reason: PAIN/FEVER > 101 Albuterol/Ipratropium (Duoneb) 3 ml NEB Q4HP PRN PRN Reason: Shortness Of Breath Last Admin: 09/23/19 22:16 Dose: 3 ml Documented by: Albuterol/Ipratropium (Duoneb) 3 ml NEB Q6HRT [facility] Last Admin: 09/24/19 06:45 Dose: 3 ml Documented by: Amlodipine Besylate (Norvasc) 5 mg PO QDAY [facility] Last Admin: 09/23/19 08:53 Dose: 5 mg Documented by: Atorvastatin Calcium (Lipitor) 20 mg PO DAILY [facility] Last Admin: 09/23/19 08:53 Dose: 20 mg Documented by: Enoxaparin Sodium (Lovenox) 40 mg SQ DAILY [facility] Last Admin: 09/23/19 08:52 Dose: 40 mg Documented by: Escitalopram Oxalate (Lexapro) 20 mg PO QDAY [facility] Last Admin: 09/23/19 08:53 Dose: 20 mg Documented by: Potassium Chloride 40 meq/ (Dextrose) 520 mls @ 130 mls/hr IV UD PRN PRN Reason: Potassium < 3 Ceftriaxone Sodium 2 gm/ (Dextrose) 50 mls @ 100 mls/hr IV DAILY [facility]; Protocol Last Infusion: 09/23/19 09:22 Dose: Infused Documented by: Azithromycin 500 mg/ Dextrose 250 mls @ 250 mls/hr IV DAILY [facility]; Protocol Stop: 09/24/19 09:59 Last Infusion: 09/23/19 10:53 Dose: Infused Documented by: Magnesium Sulfate (Magnesium Sulfate) 2 gm in 50 mls @ 50 mls/hr IV UD PRN PRN Reason: Magnesium </= 1.6 Lactobacillus Rhamnosus (Culturelle) 1 cap PO BID [facility] Last Admin: 09/23/19 22:02 Dose: 1 cap Documented by: Lactulose (Cephulac) 20 gm PO DAILYP PRN PRN Reason: Constipation Levothyroxine Sodium (Synthroid) 88 mcg PO ACB [facility] Last Admin: 09/23/19 07:31 Dose: 88 mcg Documented by: Losartan Potassium (Cozaar) 50 mg PO QDAY [facility] Last Admin: 09/23/19 08:53 Dose: 50 mg Documented by: Methylprednisolone Sodium Succinate (Solu-Medrol) 40 mg IV Q8 [facility] Last Admin: 09/24/19 06:36 Dose: 40 mg Documented by: Ondansetron HCl (Zofran) 4 mg IV Q4HP PRN PRN Reason: Nausea And Vomiting Anoro Ellipta 1 (Inhaler) 1 dose INH DAILY [facility] Last Admin: 09/23/19 08:55 Dose: 1 dose Documented by: Polyethylene Glycol (Miralax) 17 gm PO DAILYP PRN PRN Reason: Constipation Potassium Chloride (Kdur) 40 meq PO UD PRN PRN Reason: Potssium is 3-3.5 Potassium Chloride (Kdur) 40 meq PO UD PRN PRN Reason: Potassium < 3 Primidone (Mysoline) 50 mg PO BID [facility] Last Admin: 09/23/19 22:03 Dose: 50 mg Documented by: Senna (Senokot) 2 tab PO DAILYP PRN PRN Reason: Constipation Sodium Chloride (Saline Flush) 10 ml IV Q8 [facility] Last Admin: 09/24/19 06:36 Dose: 10 ml Documented by: Medical - PN: A/P - Time Spent With Patient Total time spent is greater than 50% in coordination of care (as documented) at patient's floor/unit and/or counseling patient: - Narrative A/P Narrative: A: *PNA & (+)Human Metapneumovirus: CXR worse yesterday with an ARDS appearance *Acute hypoxic respiratory failure: -on 1L NC *AECOPD(2L@night at home only): *Oropharyngeal Dysphagia,mild: *Hyponatremia, chronic: But worsened on admit from previous labs, now Improved -is on SSRI and HCTZ *HTN/HLD: *Hypothyroidism: TSH wnl *Depression/anxiety: *Tobacco abuse: P: -Rocephin/azithromycin -Pending blood culture/sputum culture -IS/Acapella -Urine studies -monitor sodium, hold HCTZ -free water restriction, salt tabs -Dysphagia diet per ST -f/u cxr -Smoking cessation counseling -ppx: Lovenox full code Medical - PN: Qual - VTE Deep Vein Thrombosis/Pulmonary Embolism Present on Admission: No
[2019-09-24] MEDS: LEVOTHYROXINE 88 MCG TABLET PO SCH (07:44)
[2019-09-24] MEDS: cefTRIAXone 2 GM in DEXTROSE 5% IN WATER 50 ML IV SCH (08:54)
[2019-09-24] MEDS: ENOXAPARIN 40 MG/0.4 ML SYRINGE SQ SCH (08:54)
[2019-09-24] MEDS: ARIPIPRAZOLE 5 MG TABLET PO SCH (08:55)
[2019-09-24] MEDS: SODIUM CHLORIDE 1 GM TABLET PO SCH ×3 (08:55→21:33)
[2019-09-24] MEDS: PRIMIDONE 50 MG TABLET PO SCH ×2 (08:55→21:33)
[2019-09-24] MEDS: LOSARTAN 50 MG TABLET PO SCH (08:55)
[2019-09-24] MEDS: ESCITALOPRAM 20 MG TABLET PO SCH (08:55)
[2019-09-24] MEDS: amLODIPine 5 MG TABLET PO SCH (08:55)
[2019-09-24] MEDS: LACTOBACILLUS 1 CAPSULE PO SCH ×2 (08:55→21:33)
[2019-09-24] MEDS: ATORVASTATIN 20 MG TABLET PO SCH (08:55)
[2019-09-24] MEDS: ANORO ELLIPTA INH SCH (08:56)
[2019-09-24] MEDS: AZITHROMYCIN 500 MG in DEXTROSE 5% IN WATER 250 ML IV SCH (09:33)
[2019-09-24] MEDS: IPRATROPIUM/ALBUTEROL 3 ML AMPUL.NEB NEB PRN (09:50)
[2019-09-25] MEDS: IPRATROPIUM/ALBUTEROL 3 ML AMPUL.NEB NEB SCH ×4 (00:51→18:32)
[2019-09-25] MEDS: methylPREDNISolone SOD SUCC 40 MG/ML VIAL IV SCH ×2 (06:35→20:50)
[2019-09-25] MEDS: 0.9 % SODIUM CHLORIDE 10 ML SYRINGE IV SCH ×3 (06:35→20:50)
[2019-09-25] MEDS: LEVOTHYROXINE 88 MCG TABLET PO SCH (07:04)
--- NOTE | 2019-09-25 07:08 | Internal Med Progress Note ---
Medical - PN: Subj Patient information: Note initiated : 09/25/19 at 7:02 am Service Date, if different from initiated Date: [] Patient: Marielos Haynes a 74 y/o F admitted on 09/22/19 for Shortness of breath. Chief Complaint: [] Interval history: Ms. Haynes is a 74 year old F Who states that she felt like she was developing a cold monitor Wednesday and Wednesday she developed a productive cough of yellow sputum and increased shortness of breath this continued to worsen she slept poorly last night and with the worsening shortness of breath she called her son who brought her into the ED. She had oxygen saturations 70 was 77% initially. She responded initially to treatments in the ED but still required oxygen supplementation to maintain saturations. She has had a son and a grandson that is been sick. Is felt feverish Chest x-ray showed moderate right-sided infiltrate. She does report feeling like food goes down "the wrong pip"e once a week usually with foods as opposed to drinks. In the ED she was also found to be hyponatremic but this appears chronic. She is on a hydrochlorothiazide. Still smoking. 09/23 Still with productive cough and shortness of breath with wheezing. She states she feels may be a little better. She developed some diarrhea last night. Respiratory viral panel positive for human metapneumovirus. 09/24 Patient reports cough is more dry now and improving per her. Stated shortness of breath is still present a little bit better than yesterday. Placed on 1 L nasal cannula this morning. 09/25 Poor sleep last night. On her 2 L of oxygen. Shortness of breath similar to . Chest x-ray with bilateral infiltrates with ARDS appearance. Review of Systems: denies headache/fever/chills/nausea/vomiting/chest or abdominal pain. Otherwise see above. - Constitutional Vitals: Vital Signs Temp Pulse Resp BP Pulse Ox 97.8 F 81 22 135/69 90 09/25/19 04:46 09/25/19 04:46 09/25/19 04:46 09/25/19 04:46 09/25/19 04:46 Period Temp Pulse Resp BP Sys/Dawkins Pulse Ox Last 24 Hr 97.8 F-98.5 F 81-100 16-22 125-135/60-69 90-91 Intake and Output 09/24/19 09/25/19 09/25/19 21:59 05:59 13:59 Intake Total 1000 475 Output Total 700 950 Balance 300 -475 Weight 71.259 kg Intake & Output: Intake & Output 09/24/19 09/25/19 09/25/19 21:59 05:59 13:59 Intake Total 1000 475 Output Total 700 950 Balance 300 -475 Weight 71.259 kg Intake: Oral 400 475 GI Tube Flush 600 Output: Void Amount 700 950 Other: Urine Color Dark Yellow Stool Size Smear Stool Color Brown Stool Consistency Soft # Voids 1 Exam: General: Alert, Awake, No acute Distress Eyes/N/T: EOMI, Head/Neck: neck supple, CV: RRR, No murmurs, Pulm: b/l rhonchi/wheezing Abd: soft, nontender, +BS x4 Ext: no clubbing/cyanosis/edema Neuro: Alert, no focal deficits, moves all extremities, Skin: warm/dry Medical - PN: Obj Da - Labs CBC & Chem 7: 09/23/19 06:18 09/25/19 06:34 Labs: Abnormal Lab Results 09/24/19 09/23/19 09/23/19 06:08 06:18 06:18 Hct Seg Neutrophils % Band Neutrophils % Lymphocytes % Sodium 129 L 130 L Chloride 92 L 92 L Glucose 173 H 108 H Osmolality Lactate Dehydrogenase 306 H Cortisol AM Sample 20.5 H 09/23/19 09/22/19 09/22/19 06:18 12:55 05:47 Hct 33.3 L Seg Neutrophils % 90 H Band Neutrophils % 25 H Lymphocytes % 7 L 12 L Sodium Chloride Glucose Osmolality 271 L Lactate Dehydrogenase Cortisol AM Sample Meds: Medications Acetaminophen (Tylenol) 650 mg PO Q6HP PRN PRN Reason: PAIN/FEVER > 101 Albuterol/Ipratropium (Duoneb) 3 ml NEB Q4HP PRN PRN Reason: Shortness Of Breath Last Admin: 09/24/19 09:50 Dose: 3 ml Documented by: Albuterol/Ipratropium (Duoneb) 3 ml NEB Q6HRT [facility] Last Admin: 09/25/19 00:51 Dose: 3 ml Documented by: Amlodipine Besylate (Norvasc) 5 mg PO QDAY [facility] Last Admin: 09/24/19 08:55 Dose: 5 mg Documented by: Atorvastatin Calcium (Lipitor) 20 mg PO DAILY [facility] Last Admin: 09/24/19 08:55 Dose: 20 mg Documented by: Enoxaparin Sodium (Lovenox) 40 mg SQ DAILY [facility] Last Admin: 09/24/19 08:54 Dose: 40 mg Documented by: Escitalopram Oxalate (Lexapro) 20 mg PO QDAY [facility] Last Admin: 09/24/19 08:55 Dose: 20 mg Documented by: Potassium Chloride 40 meq/ (Dextrose) 520 mls @ 130 mls/hr IV UD PRN PRN Reason: Potassium < 3 Ceftriaxone Sodium 2 gm/ (Dextrose) 50 mls @ 100 mls/hr IV DAILY [facility]; Protocol Last Admin: 09/24/19 08:54 Dose: 100 mls/hr Documented by: Magnesium Sulfate (Magnesium Sulfate) 2 gm in 50 mls @ 50 mls/hr IV UD PRN PRN Reason: Magnesium </= 1.6 Lactobacillus Rhamnosus (Culturelle) 1 cap PO BID [facility] Last Admin: 09/24/19 21:33 Dose: 1 cap Documented by: Lactulose (Cephulac) 20 gm PO DAILYP PRN PRN Reason: Constipation Levothyroxine Sodium (Synthroid) 88 mcg PO ACB [facility] Last Admin: 09/24/19 07:44 Dose: 88 mcg Documented by: Losartan Potassium (Cozaar) 50 mg PO QDAY [facility] Last Admin: 09/24/19 08:55 Dose: 50 mg Documented by: Methylprednisolone Sodium Succinate (Solu-Medrol) 40 mg IV Q8 [facility] Last Admin: 09/25/19 06:35 Dose: 40 mg Documented by: Ondansetron HCl (Zofran) 4 mg IV Q4HP PRN PRN Reason: Nausea And Vomiting Anoro Ellipta 1 (Inhaler) 1 dose INH DAILY [facility] Last Admin: 09/24/19 08:56 Dose: 1 dose Documented by: Polyethylene Glycol (Miralax) 17 gm PO DAILYP PRN PRN Reason: Constipation Potassium Chloride (Kdur) 40 meq PO UD PRN PRN Reason: Potssium is 3-3.5 Potassium Chloride (Kdur) 40 meq PO UD PRN PRN Reason: Potassium < 3 Primidone (Mysoline) 50 mg PO BID [facility] Last Admin: 09/24/19 21:33 Dose: 50 mg Documented by: Senna (Senokot) 2 tab PO DAILYP PRN PRN Reason: Constipation Sodium Chloride (Saline Flush) 10 ml IV Q8 [facility] Last Admin: 09/25/19 06:35 Dose: 10 ml Documented by: Sodium Chloride (Sodium Chloride) 1 gm PO TID [facility] Last Admin: 09/24/19 21:33 Dose: 1 gm Documented by: Medical - PN: A/P - Time Spent With Patient Total time spent is greater than 50% in coordination of care (as documented) at patient's floor/unit and/or counseling patient: - Narrative A/P Narrative: A: *PNA & (+)Human Metapneumovirus with ALI: f/u CXR worse with an ARDS appearance. 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
[2019-09-25 08:04] LABS: Blood Urea Nitrogen 14 mg/dl (8-23); Calcium 9.2 mg/dl (8.6-10.4); Carbon Dioxide 24 mmol/L (22-30); Glomerular Filtration Rate 90; Glucose 122 mg/dL (70-105)
[2019-09-25 08:05] LABS: Chloride 95 mmol/L (96-108)
[2019-09-25] MEDS ORDERED: FUROSEMIDE 40 MG/4 ML VIAL IV ONE ×3 (08:16→16:00)
--- NOTE | 2019-09-25 08:25 | XRay Report ---
HISTORY: Shortness of breath and follow-up pulmonary infiltrates FINDINGS: There are moderately severe diffuse alveolar infiltrates throughout both lungs with greatest involvement in the upper lobes and lingula. The pattern of the infiltrates has shifted compared to prior studies done at 09/22 and 09/23/2019. There has been improvement in the central portion of the right lung but the involvement in the left lung has progressively become worse. Lung volumes are normal. There is no pleural effusion. No adenopathy is detected. The heart size is normal. IMPRESSION: Moderately severe diffuse bilateral alveolar infiltrates. This may be due to pneumonia, ARDS, edema or a noninfectious inflammatory process. Interpreted and Authenticated by: Kamari Baker 09/25/19
[2019-09-25] MEDS ORDERED: cefTRIAXone 2 GM VIAL ONE (08:48)
[2019-09-25] MEDS: cefTRIAXone 2 GM in DEXTROSE 5% IN WATER 50 ML IV SCH (08:53)
[2019-09-25] MEDS: LACTOBACILLUS 1 CAPSULE PO SCH ×2 (08:54→20:49)
[2019-09-25] MEDS: ESCITALOPRAM 20 MG TABLET PO SCH (08:54)
[2019-09-25] MEDS: PRIMIDONE 50 MG TABLET PO SCH ×2 (08:54→20:50)
[2019-09-25] MEDS: amLODIPine 5 MG TABLET PO SCH (08:54)
[2019-09-25] MEDS: LOSARTAN 50 MG TABLET PO SCH (08:54)
[2019-09-25] MEDS: ENOXAPARIN 40 MG/0.4 ML SYRINGE SQ SCH (08:54)
[2019-09-25] MEDS: ATORVASTATIN 20 MG TABLET PO SCH (08:54)
[2019-09-25] MEDS: SODIUM CHLORIDE 1 GM TABLET PO SCH ×3 (08:54→20:49)
[2019-09-25] MEDS: ARIPIPRAZOLE 5 MG TABLET PO SCH (08:54)
[2019-09-25] MEDS: ANORO ELLIPTA INH SCH (09:09)
[2019-09-25] MEDS: MELATONIN 3 MG TABLET PO SCH (20:50)
[2019-09-26] MEDS: IPRATROPIUM/ALBUTEROL 3 ML AMPUL.NEB NEB SCH ×4 (00:53→20:09)
--- NOTE | 2019-09-26 07:08 | Internal Med Progress Note ---
Medical - PN: Subj Patient information: Note initiated : 09/26/19 at 7:02 am Service Date, if different from initiated Date: [] Patient: Marielos Haynes a 74 y/o F admitted on 09/22/19 for Shortness of breath. Chief Complaint: [] Interval history: Ms. Haynes is a 74 year old F Who states that she felt like she was developing a cold monitor Wednesday and Wednesday she developed a productive cough of yellow sputum and increased shortness of breath this continued to worsen she slept poorly last night and with the worsening shortness of breath she called her son who brought her into the ED. She had oxygen saturations 70 was 77% initially. She responded initially to treatments in the ED but still required oxygen supplementation to maintain saturations. She has had a son and a grandson that is been sick. Is felt feverish Chest x-ray showed moderate right-sided infiltrate. She does report feeling like food goes down "the wrong pip"e once a week usually with foods as opposed to drinks. In the ED she was also found to be hyponatremic but this appears chronic. She is on a hydrochlorothiazide. Still smoking. 09/23 Still with productive cough and shortness of breath with wheezing. She states she feels may be a little better. She developed some diarrhea last night. Respiratory viral panel positive for human metapneumovirus. 09/24 Patient reports cough is more dry now and improving per her. Stated shortness of breath is still present a little bit better than yesterday. Placed on 1 L nasal cannula this morning. 09/25 Poor sleep last night. On her 2 L of oxygen. Shortness of breath similar to y . Chest x-ray with bilateral infiltrates with ARDS appearance. 09/26 Reports her cough is changing and that it feels a little deeper but better. She says her shortness of breath is also gradually improving, little bit every day. Chest x-ray similar to yesterday with maybe mild improvement. Good diuresis yesterday. Review of Systems: denies headache/fever/chills/nausea/vomiting/chest or abdominal pain. Otherwise see above. - Constitutional Vitals: Vital Signs Temp Pulse Resp BP Pulse Ox 98.0 F 82 24 H 139/77 96 09/26/19 03:01 09/26/19 03:01 09/26/19 03:01 09/26/19 03:01 09/26/19 03:01 Period Temp Pulse Resp BP Sys/Dawkins Pulse Ox Last 24 Hr 97.8 F-98.4 F 74-90 16-24 124-148/60-80 91-96 Intake and Output 09/25/19 09/26/19 09/26/19 21:59 05:59 13:59 Intake Total 960 400 Output Total 2450 Balance -1490 400 Weight 68.674 kg Intake & Output: Intake & Output 09/25/19 09/26/19 09/26/19 21:59 05:59 13:59 Intake Total 960 400 Output Total 2450 Balance -1490 400 Weight 68.674 kg Intake: Oral 960 400 Output: Void Amount 2450 Other: Meal Lunch Percent of Meal Consumed 75% Feeding Ability Independent Urine Appearance Clear Urine Color Straw Urine Odor Normal # Voids 1 Exam: General: Alert, Awake, No acute Distress Eyes/N/T: EOMI, Head/Neck: neck supple, CV: RRR, No murmurs, Pulm: rhonchi/wheezing on right, left now with minimal Abd: soft, nontender, +BS x4 Ext: no clubbing/cyanosis/edema Neuro: Alert, no focal deficits, moves all extremities, Skin: warm/dry Medical - PN: Obj Da - Labs CBC & Chem 7: 09/23/19 06:18 09/25/19 06:34 Labs: Abnormal Lab Results 09/25/19 09/25/19 09/24/19 14:57 06:34 06:08 Hct Seg Neutrophils % Lymphocytes % Sodium 132 L 129 L Chloride 95 L 92 L Glucose 122 H 173 H Lactate Dehydrogenase NT-Pro-B Natriuret Pep 3316.0 H Cortisol AM Sample 09/23/19 09/23/19 09/23/19 06:18 06:18 06:18 Hct 33.3 L Seg Neutrophils % 90 H Lymphocytes % 7 L Sodium 130 L Chloride 92 L Glucose 108 H Lactate Dehydrogenase 306 H NT-Pro-B Natriuret Pep Cortisol AM Sample 20.5 H Meds: Medications Acetaminophen (Tylenol) 650 mg PO Q6HP PRN PRN Reason: PAIN/FEVER > 101 Albuterol/Ipratropium (Duoneb) 3 ml NEB Q4HP PRN PRN Reason: Shortness Of Breath Last Admin: 09/24/19 09:50 Dose: 3 ml Documented by: Albuterol/Ipratropium (Duoneb) 3 ml NEB Q6HRT [facility] Last Admin: 09/26/19 00:53 Dose: 3 ml Documented by: Amlodipine Besylate (Norvasc) 5 mg PO QDAY [facility] Last Admin: 09/25/19 08:54 Dose: 5 mg Documented by: Atorvastatin Calcium (Lipitor) 20 mg PO DAILY [facility] Last Admin: 09/25/19 08:54 Dose: 20 mg Documented by: Enoxaparin Sodium (Lovenox) 40 mg SQ DAILY [facility] Last Admin: 09/25/19 08:54 Dose: 40 mg Documented by: Escitalopram Oxalate (Lexapro) 20 mg PO QDAY [facility] Last Admin: 09/25/19 08:54 Dose: 20 mg Documented by: Potassium Chloride 40 meq/ (Dextrose) 520 mls @ 130 mls/hr IV UD PRN PRN Reason: Potassium < 3 Ceftriaxone Sodium 2 gm/ (Dextrose) 50 mls @ 100 mls/hr IV DAILY [facility]; Protocol Last Infusion: 09/25/19 09:53 Dose: Infused Documented by: Magnesium Sulfate (Magnesium Sulfate) 2 gm in 50 mls @ 50 mls/hr IV UD PRN PRN Reason: Magnesium </= 1.6 Lactobacillus Rhamnosus (Culturelle) 1 cap PO BID [facility] Last Admin: 09/25/19 20:49 Dose: 1 cap Documented by: Lactulose (Cephulac) 20 gm PO DAILYP PRN PRN Reason: Constipation Levothyroxine Sodium (Synthroid) 88 mcg PO ACB [facility] Last Admin: 09/25/19 07:04 Dose: 88 mcg Documented by: Losartan Potassium (Cozaar) 50 mg PO QDAY [facility] Last Admin: 09/25/19 08:54 Dose: 50 mg Documented by: Melatonin (Melatonin 3mg Tablet) 3 mg PO QHS [facility] Last Admin: 09/25/19 20:50 Dose: 3 mg Documented by: Methylprednisolone Sodium Succinate (Solu-Medrol) 40 mg IV BID [facility] Last Admin: 09/25/19 20:50 Dose: 40 mg Documented by: Ondansetron HCl (Zofran) 4 mg IV Q4HP PRN PRN Reason: Nausea And Vomiting Anoro Ellipta 1 (Inhaler) 1 dose INH DAILY [facility] Last Admin: 09/25/19 09:09 Dose: 1 dose Documented by: Polyethylene Glycol (Miralax) 17 gm PO DAILYP PRN PRN Reason: Constipation Potassium Chloride (Kdur) 40 meq PO UD PRN PRN Reason: Potssium is 3-3.5 Potassium Chloride (Kdur) 40 meq PO UD PRN PRN Reason: Potassium < 3 Primidone (Mysoline) 50 mg PO BID [facility] Last Admin: 09/25/19 20:50 Dose: 50 mg Documented by: Senna (Senokot) 2 tab PO DAILYP PRN PRN Reason: Constipation Sodium Chloride (Saline Flush) 10 ml IV Q8 [facility] Last Admin: 09/25/19 20:50 Dose: 10 ml Documented by: Sodium Chloride (Sodium Chloride) 1 gm PO TID [facility] Last Admin: 09/25/19 20:49 Dose: 1 gm Documented by: Medical - PN: A/P - Time Spent With Patient Total time spent is greater than 50% in coordination of care (as documented) at patient's floor/unit and/or counseling patient: - Narrative A/P Narrative: A: *PNA & (+)Human Metapneumovirus with ALI: f/u CXR worse with an ARDS appearance. -diureses yesterday with good outpt and little difference in f/u cxr *Acute hypoxic respiratory failure: -on 2L NC *AECOPD(2L@night at home only): *Oropharyngeal Dysphagia,mild: *Hyponatremia, chronic: But worsened on admit from previous labs, now Improved -is on SSRI and HCTZ *HTN/HLD: *Hypothyroidism: TSH wnl *Depression/anxiety: *Tobacco abuse: P: -Rocephin/azithromycin -Pending blood culture/sputum culture -IS/Acapella -steroid/nebs -O2 supp, f/u ABG -echo pending -monitor sodium, hold HCTZ -free water restriction, salt tabs -Dysphagia diet per ST -f/u cxr -Smoking cessation counseling -ppx: Lovenox full code Medical - PN: Qual - VTE Deep Vein Thrombosis/Pulmonary Embolism Present on Admission: No
[2019-09-26] MEDS: 0.9 % SODIUM CHLORIDE 10 ML SYRINGE IV SCH ×3 (07:12→20:15)
[2019-09-26] MEDS: LEVOTHYROXINE 88 MCG TABLET PO SCH (07:12)
--- NOTE | 2019-09-26 08:07 | XRay Report ---
HISTORY: Follow-up pulmonary infiltrates FINDINGS: Moderately severe diffuse infiltrates are present throughout both lungs. There is greater involvement in the left lung than right. There has been improvement on the right side since 09/23/2019 and 09/25/2019. The involvement on the left side has not changed significantly since yesterday's chest x-ray. There is no pleural effusion and no adenopathy is detected. The heart size is normal. No pneumothorax or pleural effusion are present. IMPRESSION: Persistent widespread infiltrates throughout both lungs with mild improvement on the right side Interpreted and Authenticated by: Kamari Baker 09/26/19
[2019-09-26] MEDS: ENOXAPARIN 40 MG/0.4 ML SYRINGE SQ SCH (08:16)
[2019-09-26] MEDS: ESCITALOPRAM 20 MG TABLET PO SCH (08:16)
[2019-09-26] MEDS: methylPREDNISolone SOD SUCC 40 MG/ML VIAL IV SCH ×2 (08:16→20:14)
[2019-09-26] MEDS: cefTRIAXone 2 GM in DEXTROSE 5% IN WATER 50 ML IV SCH (08:16)
[2019-09-26] MEDS: LACTOBACILLUS 1 CAPSULE PO SCH ×2 (08:16→20:14)
[2019-09-26] MEDS: LOSARTAN 50 MG TABLET PO SCH (08:17)
[2019-09-26] MEDS: amLODIPine 5 MG TABLET PO SCH (08:17)
[2019-09-26] MEDS: SODIUM CHLORIDE 1 GM TABLET PO SCH ×3 (08:17→20:14)
[2019-09-26] MEDS: PRIMIDONE 50 MG TABLET PO SCH ×2 (08:17→20:14)
[2019-09-26] MEDS: ARIPIPRAZOLE 5 MG TABLET PO SCH (08:17)
[2019-09-26] MEDS: ANORO ELLIPTA INH SCH (08:17)
[2019-09-26] MEDS: ATORVASTATIN 20 MG TABLET PO SCH (08:17)
[2019-09-26 08:45] LABS: ALT/SGPT 39 U/l (0-40); AST/SGOT 28 U/l (0-37); Albumin 3.9 gm/dL (3.2-5.2); Albumin/Globulin Ratio 1.4 (1.0-2.3); Alkaline Phosphatase 70 U/L (39-117); Bilirubin,Direct < 0.2 mg/dL (0.0-0.3); Bilirubin,Total 0.2 mg/dL (0.0-1.0); Blood Urea Nitrogen 17 mg/dl (8-23); Calcium 9.4 mg/dl (8.6-10.4); Carbon Dioxide 28 mmol/L (22-30); Globulin 2.8 gm/dL (2.2-3.7); Glomerular Filtration Rate 73; Glucose 123 mg/dL (70-105); Lactate Dehydrogenase 347 U/L (94-250); Phosphorous 4.5 mg/dL (2.7-4.5); Triglycerides 100 mg/dl (<150); Uric Acid 4.4 mg/dL (2.5-8.0)
[2019-09-26 08:54] LABS: Chloride 92 mmol/L (96-108)
[2019-09-26] MEDS ORDERED: BUMETANIDE 0.25 MG/ML VIAL IV ONE (09:07)
--- NOTE | 2019-09-26 10:23 | Cat Scan Report ---
History: Short of breath, follow-up pulmonary infiltrates and possible ARDS TECHNIQUE: The chest was imaged without contrast at 2.5 mm intervals from the thoracic inlet to the adrenals. Sagittal, coronal and axial MIPS images were created. Radiation exposure was limited using dose reduction technology. FINDINGS: Patient has bilateral moderate groundglass alveolar infiltrates. This predominantly involves the upper lobes, left worse than right and lingula. There is mild involvement in the superior segment of the right lower lobe and minor involvement in the right middle lobe. There is relative sparing of the left lower lobe and basilar segments of the right lower lobe. Patient has underlying mild emphysema which was documented on a prior chest CT done on 03/20/19. There is mild bronchiectasis in both upper lobes and the basilar segments of both lower lobes. Bronchiectasis is a chronic stable finding. There is mucus plugging in some of the distal third order bronchi in the left lower lobe lung with bronchial wall thickening in the lung bases. The heart is normal in size and contour. There is relatively little plaque formation in the coronary arteries. The aorta is normal caliber and there is a normal amount of plaque in the aorta. There are a few enlarged lymph nodes in the mediastinum. The largest measures 1.3 x 2.4 cm and is located in the pretracheal retrocaval space. The lymph nodes have enlarged since prior CT. The infiltrates are also new. There is a tiny layering right-sided pleural effusion. No left-sided effusion or pericardial effusion are present. IMPRESSION: Bilateral alveolar infiltrates predominantly involving the upper lung zones, superimposed upon mild emphysema. The pattern of the infiltrates is atypical for pulmonary edema or ARDS. This is probably due to an infection. This could be a viral infection. Opportunistic infection may also present with a similar pattern. Since patient has known bronchitis, bronchopneumonia is in the differential. Hypersensitivity reaction superimposed upon COPD is possible. Interpreted and Authenticated by: Kamari Baker 09/26/19
[2019-09-26] MEDS: MELATONIN 3 MG TABLET PO SCH (20:14)
[2019-09-27] MEDS: IPRATROPIUM/ALBUTEROL 3 ML AMPUL.NEB NEB SCH ×2 (01:07→08:37)
[2019-09-27] MEDS: 0.9 % SODIUM CHLORIDE 10 ML SYRINGE IV SCH (04:52)
[2019-09-27] MEDS: LEVOTHYROXINE 88 MCG TABLET PO SCH (07:02)
--- NOTE | 2019-09-27 07:09 | Internal Med Progress Note ---
Medical - PN: Subj Patient information: Note initiated : 09/27/19 at 7:03 am Service Date, if different from initiated Date: [] Patient: Marielos Haynes a 74 y/o F admitted on 09/22/19 for Shortness of breath. Chief Complaint: [] Interval history: Ms. Haynes is a 74 year old F Who states that she felt like she was developing a cold monitor Wednesday and Wednesday she developed a productive cough of yellow sputum and increased shortness of breath this continued to worsen she slept poorly last night and with the worsening shortness of breath she called her son who brought her into the ED. She had oxygen saturations 70 was 77% initially. She responded initially to treatments in the ED but still required oxygen supplementation to maintain saturations. She has had a son and a grandson that is been sick. Is felt feverish Chest x-ray showed moderate right-sided infiltrate. She does report feeling like food goes down "the wrong pip"e once a week usually with foods as opposed to drinks. In the ED she was also found to be hyponatremic but this appears chronic. She is on a hydrochlorothiazide. Still smoking. 09/23 Still with productive cough and shortness of breath with wheezing. She states she feels may be a little better. She developed some diarrhea last night. Respiratory viral panel positive for human metapneumovirus. 09/24 Patient reports cough is more dry now and improving per her. Stated shortness of breath is still present a little bit better than yesterday. Placed on 1 L nasal cannula this morning. 09/25 Poor sleep last night. On her 2 L of oxygen. Shortness of breath similar to . Chest x-ray with bilateral infiltrates with ARDS appearance. 09/26 Reports her cough is changing and that it feels a little deeper but better. She says her shortness of breath is also gradually improving, little bit every day. Chest x-ray similar to yesterday with maybe mild improvement. Good diuresis yesterday. 09/27 States breathing is noticeably better than yesterday. Follow-up chest x-ray this morning improved. Did give her some more diuresis yesterday. There was no initial improvement in chest x-ray after the first days diuresis. She is currently down to half liter of oxygen with good sats. Review of Systems: denies headache/fever/chills/nausea/vomiting/chest or abdominal pain. Otherwise see above. - Constitutional Vitals: Vital Signs Temp Pulse Resp BP Pulse Ox 97.8 F 83 22 141/84 96 09/27/19 04:36 09/27/19 04:36 09/27/19 04:36 09/27/19 04:36 09/27/19 04:36 Period Temp Pulse Resp BP Sys/Dawkins Pulse Ox Last 24 Hr 97.7 F-98.0 F 73-95 16-24 137-144/68-84 91-96 Intake and Output 09/26/19 09/27/19 09/27/19 21:59 05:59 13:59 Intake Total 240 400 Output Total 1200 550 Balance -960 -150 Weight 66.791 kg Intake & Output: Intake & Output 09/26/19 09/27/19 09/27/19 21:59 05:59 13:59 Intake Total 240 400 Output Total 1200 550 Balance -960 -150 Weight 66.791 kg Intake: Oral 240 400 Output: Void Amount 1200 550 Other: Meal Lunch Percent of Meal Consumed 100% Feeding Ability Assist with Tray Set Up Urine Appearance Clear Urine Color Bright Yellow Urine Odor Normal Exam: General: Alert, Awake, No acute Distress Eyes/N/T: EOMI, Head/Neck: neck supple, CV: RRR, No murmurs, Pulm: mild rhonchi b/l improving, no wheezing Abd: soft, nontender, +BS x4 Ext: no clubbing/cyanosis/edema Neuro: Alert, no focal deficits, moves all extremities, Skin: warm/dry Medical - PN: Obj Da - Labs CBC & Chem 7: 09/23/19 06:18 09/26/19 06:14 Labs: Abnormal Lab Results 09/26/19 09/26/19 09/25/19 06:14 06:14 14:57 Sodium Chloride 92 L Glucose 123 H Lactate Dehydrogenase 347 H NT-Pro-B Natriuret Pep 2127.0 H 3316.0 H 09/25/19 09/24/19 06:34 06:08 Sodium 132 L 129 L Chloride 95 L 92 L Glucose 122 H 173 H Lactate Dehydrogenase NT-Pro-B Natriuret Pep Meds: Medications Acetaminophen (Tylenol) 650 mg PO Q6HP PRN PRN Reason: PAIN/FEVER > 101 Albuterol/Ipratropium (Duoneb) 3 ml NEB Q4HP PRN PRN Reason: Shortness Of Breath Last Admin: 09/24/19 09:50 Dose: 3 ml Documented by: Albuterol/Ipratropium (Duoneb) 3 ml NEB Q6HRT [facility] Last Admin: 09/27/19 01:07 Dose: 3 ml Documented by: Amlodipine Besylate (Norvasc) 5 mg PO QDAY [facility] Last Admin: 09/26/19 08:17 Dose: 5 mg Documented by: Atorvastatin Calcium (Lipitor) 20 mg PO DAILY [facility] Last Admin: 09/26/19 08:17 Dose: 20 mg Documented by: Enoxaparin Sodium (Lovenox) 40 mg SQ DAILY [facility] Last Admin: 09/26/19 08:16 Dose: 40 mg Documented by: Escitalopram Oxalate (Lexapro) 20 mg PO QDAY [facility] Last Admin: 09/26/19 08:16 Dose: 20 mg Documented by: Potassium Chloride 40 meq/ (Dextrose) 520 mls @ 130 mls/hr IV UD PRN PRN Reason: Potassium < 3 Magnesium Sulfate (Magnesium Sulfate) 2 gm in 50 mls @ 50 mls/hr IV UD PRN PRN Reason: Magnesium </= 1.6 Lactobacillus Rhamnosus (Culturelle) 1 cap PO BID [facility] Last Admin: 09/26/19 20:14 Dose: 1 cap Documented by: Lactulose (Cephulac) 20 gm PO DAILYP PRN PRN Reason: Constipation Levothyroxine Sodium (Synthroid) 88 mcg PO ACB [facility] Last Admin: 09/27/19 07:02 Dose: 88 mcg Documented by: Losartan Potassium (Cozaar) 50 mg PO QDAY [facility] Last Admin: 09/26/19 08:17 Dose: 50 mg Documented by: Melatonin (Melatonin 3mg Tablet) 3 mg PO QHS [facility] Last Admin: 09/26/19 20:14 Dose: 3 mg Documented by: Methylprednisolone Sodium Succinate (Solu-Medrol) 40 mg IV BID [facility] Last Admin: 09/26/19 20:14 Dose: 40 mg Documented by: Ondansetron HCl (Zofran) 4 mg IV Q4HP PRN PRN Reason: Nausea And Vomiting Anoro Ellipta 1 (Inhaler) 1 dose INH DAILY [facility] Last Admin: 09/26/19 08:17 Dose: 1 dose Documented by: Polyethylene Glycol (Miralax) 17 gm PO DAILYP PRN PRN Reason: Constipation Potassium Chloride (Kdur) 40 meq PO UD PRN PRN Reason: Potssium is 3-3.5 Potassium Chloride (Kdur) 40 meq PO UD PRN PRN Reason: Potassium < 3 Primidone (Mysoline) 50 mg PO BID [facility] Last Admin: 09/26/19 20:14 Dose: 50 mg Documented by: Senna (Senokot) 2 tab PO DAILYP PRN PRN Reason: Constipation Sodium Chloride (Saline Flush) 10 ml IV Q8 [facility] Last Admin: 09/27/19 04:52 Dose: 10 ml Documented by: Sodium Chloride (Sodium Chloride) 1 gm PO TID [facility] Last Admin: 09/26/19 20:14 Dose: 1 gm Documented by: Medical - PN: A/P - Time Spent With Patient Total time spent is greater than 50% in coordination of care (as documented) at patient's floor/unit and/or counseling patient: - Narrative A/P Narrative: A: *Acute hypoxic respiratory failure: 2/2 PNA/COPD -on 0.5L NC -echo unremarkable *PNA & (+)Human Metapneumovirus w/ALI: -BC/SC neg *AECOPD(2L@night at home only): *Oropharyngeal Dysphagia,mild: *Hyponatremia, chronic: But worsened on admit from previous labs, now Improved -is on SSRI and HCTZ *HTN/HLD: *Hypothyroidism: TSH wnl *Depression/anxiety: *Tobacco abuse: P: -finished 5-day course of abx -IS/Acapella -steroid/nebs -O2 supp wean likely off today -s/p diuresis -d/c'd HCTZ for hyponatremia -free water restriction, salt tabs -Dysphagia diet per ST -f/u cxr -Smoking cessation counseling -ppx: Lovenox full code Medical - PN: Qual - VTE Deep Vein Thrombosis/Pulmonary Embolism Present on Admission: No
[2019-09-27] MEDS ORDERED: FUROSEMIDE 20 MG/2 ML VIAL IV ONE (08:33)
--- NOTE | 2019-09-27 08:36 | XRay Report ---
HISTORY: Follow-up pulmonary infiltrates FINDINGS: there are diffuse interstitial type infiltrates in both upper lobes and lingula. These continue to gradually improve compared with prior exams dating back to 09/22/19. The lung volumes are normal. There is no pleural effusion. The heart size is normal. Mild levoscoliotic curvature is noted in the upper thoracic spine. IMPRESSION: Improving bilateral pneumonia Interpreted and Authenticated by: Kamari Baker 09/27/19
[2019-09-27] MEDS: LOSARTAN 50 MG TABLET PO SCH (08:50)
[2019-09-27] MEDS: ENOXAPARIN 40 MG/0.4 ML SYRINGE SQ SCH (08:50)
[2019-09-27] MEDS: PRIMIDONE 50 MG TABLET PO SCH (08:51)
[2019-09-27] MEDS: LACTOBACILLUS 1 CAPSULE PO SCH (08:51)
[2019-09-27] MEDS: SODIUM CHLORIDE 1 GM TABLET PO SCH (08:51)
[2019-09-27] MEDS: ATORVASTATIN 20 MG TABLET PO SCH (08:51)
[2019-09-27] MEDS: ARIPIPRAZOLE 5 MG TABLET PO SCH (08:51)
[2019-09-27] MEDS: amLODIPine 5 MG TABLET PO SCH (08:51)
[2019-09-27] MEDS: ESCITALOPRAM 20 MG TABLET PO SCH (08:51)
[2019-09-27] MEDS: ANORO ELLIPTA INH SCH (09:45)
[2019-09-27] MEDS: methylPREDNISolone SOD SUCC 40 MG/ML VIAL IV SCH (09:45)
--- NOTE | 2019-09-27 11:35 | Discharge Summary ---
Medical - DS: Prov Patient information: Note initiated : 09/27/19 at 11:31 am Service Date, if different from initiated Date: [] Patient: Marielos Haynes 74 y/o F admitted on 09/22/19 for Shortness of breath. Chief Complaint: [] Date of admission: 09/22/19 14:27 Discharge date: 09/27/19 Primary care physician: Chiquita Carrillo Consults: 09/22/19 Consult to Physician [CONS] Stat Comment: Consulting Provider: Trevon Ag Reason For Exam: Physician to Consult Medical - DS: Meds - Discharge Medications Prescriptions: predniSONE [Prednisone] 30 mg PO DAILY #1 tab Transmission Status: Pending to [address] Active and Home Medications: Home Medications albuterol sulfate 90 mcg/actuation aerosol inhaler 2 puff INHALATION .Q4-6H PRN g 05/08/19 [History Confirmed 09/22/19 Last Taken 09/21/19] cholecalciferol (vitamin D3) 25 mcg (1,000 unit) capsule 1,000 unit PO QDAY 05/08/19 [History Confirmed 09/22/19 Last Taken Unknown] hydrochlorothiazide 12.5 mg tablet 12.5 mg PO QAM tab 05/08/19 [History Confirmed 09/22/19 Last Taken 09/21/19] levothyroxine 88 mcg tablet 88 mcg PO QDAY 05/08/19 [History Confirmed 09/22/19 Last Taken 09/21/19] multivitamin 1 tab PO QDAY 05/08/19 [History Confirmed 09/22/19 Last Taken 09/21/19] omega-3 fatty acids 1,000 mg capsule 2,000 mg PO QDAY 05/08/19 [History Confirm ed 09/22/19 Last Taken 09/21/19] primidone 50 mg tablet 50 mg PO BID tab 05/08/19 [History Confirmed 09/22/19 Last Taken 09/21/19] sodium chloride 0.65 % nasal spray aerosol See Rx Instructions INTRANASAL QHS ml 05/08/19 [History Confirmed 09/22/19 Last Taken Unknown] umeclidinium 62.5 mcg-vilanterol 25 mcg/actuation powdr for inhalation 1 inh INHALATION Q24H 05/08/19 [History Confirmed 09/22/19 Last Taken 09/21/19] amlodipine 5 mg tablet 5 mg PO QDAY #90 tab 08/16/19 [Rx Confirmed 09/22/19 Last Taken 09/21/19] aripiprazole 5 mg tablet 2.5 mg PO QDAY #45 tab 08/16/19 [Rx Confirmed 09/22/19 Last Taken 09/21/19] losartan 50 mg tablet 50 mg PO QDAY #90 tab 08/16/19 [Rx Confirmed 09/22/19 Last Taken 09/21/19] Escitalopram Oxalate [Lexapro] 20 mg PO HS 09/22/19 [History Confirmed 09/22/19 Last Taken 09/21/19] Pravastatin [Pravachol] 80 mg PO HS 09/22/19 [History Confirmed 09/22/19 Last Taken 09/21/19] Home Medications albuterol sulfate 90 mcg/actuation aerosol inhaler 2 puff INHALATION .Q4-6H PRN g 05/08/19 [History Confirmed 09/22/19 Last Taken 09/21/19] cholecalciferol (vitamin D3) 25 mcg (1,000 unit) capsule 1,000 unit PO QDAY 05/08/19 [History Confirmed 09/22/19 Last Taken Unknown] levothyroxine 88 mcg tablet 88 mcg PO QDAY 05/08/19 [History Confirmed 09/22/19 Last Taken 09/21/19] multivitamin 1 tab PO QDAY 05/08/19 [History Confirmed 09/22/19 Last Taken 09/21/19] omega-3 fatty acids 1,000 mg capsule 2,000 mg PO QDAY 05/08/19 [History Confirmed 09/22/19 Last Taken 09/21/19] primidone 50 mg tablet 50 mg PO BID tab 05/08/19 [History Confirmed 09/22/19 Last Taken 09/21/19] sodium chloride 0.65 % nasal spray aerosol See Rx Instructions INTRANASAL QHS ml 05/08/19 [History Confirmed 09/22/19 Last Taken Unknown] umeclidinium 62.5 mcg-vilanterol 25 mcg/actuation powdr for inhalation 1 inh INHALATION Q24H 05/08/19 [History Confirmed 09/22/19 Last Taken 09/21/19] amlodipine 5 mg tablet 5 mg PO QDAY #90 tab 08/16/19 [Rx Confirmed 09/22/19 Last Taken 09/21/19] aripiprazole 5 mg tablet 2.5 mg PO QDAY #45 tab 08/16/19 [Rx Confirmed 09/22/19 Last Taken 09/21/19] losartan 50 mg tablet 50 mg PO QDAY #90 tab 08/16/19 [Rx Confirmed 09/22/19 Last Taken 09/21/19] Escitalopram Oxalate [Lexapro] 20 mg PO HS 09/22/19 [History Confirmed 09/22/19 Last Taken 09/21/19] Pravastatin [Pravachol] 80 mg PO HS 09/22/19 [History Confirmed 09/22/19 Last Taken 09/21/19] predniSONE [Prednisone] 30 mg PO DAILY #1 tab 09/27/19 [Rx Last Taken Unknown] Medical - DS: Hosp Hospital Course: Ms. Haynes is a 74 year old F Who states that she felt like she was developing a cold monitor Wednesday and Wednesday she developed a productive cough of yellow sputum and increased shortness of breath this continued to worsen she slept poorly last night and with the worsening shortness of breath she called her son who brought her into the ED. She had oxygen saturations 70 was 77% initially. She responded initially to treatments in the ED but still required oxygen supplementation to maintain saturations. She has had a son and a grandson that is been sick. Is felt feverish Chest x-ray showed moderate right-sided infiltrate. She does report feeling like food goes down "the wrong pip"e once a week usually with foods as opposed to drinks. In the ED she was also found to be hyponatremic but this appears chronic. She is on a hydrochlorothiazide. Still smoking. 09/23 Still with productive cough and shortness of breath with wheezing. She states she feels may be a little better. She developed some diarrhea last night. Respiratory viral panel positive for human metapneumovirus. 09/24 Patient reports cough is more dry now and improving per her. Stated shortness of breath is still present a little bit better than yesterday. Placed on 1 L nasal cannula this morning. 09/25 Poor sleep last night. On her 2 L of oxygen. Shortness of breath similar to yesterday. Chest x-ray with bilateral infiltrates with ARDS appearance. 09/26 Reports her cough is changing and that it feels a little deeper but better. She says her shortness of breath is also gradually improving, little bit every day. Chest x-ray similar to yesterday with maybe mild improvement. Good diuresis yesterday. 09/27 States breathing is noticeably better than yesterday. Follow-up chest x-ray this morning improved. Did give her some more diuresis yesterday. There was no initial improvement in chest x-ray after the first days diuresis. She is currently down to half liter of oxygen with good sats. In morning patient doing well on room air. She ambulated with physical therapy on 1 L but was immediately put to room air when she returned and she had good sats 94-95%. patient feeling good and stable for discharge A: *Acute hypoxic respiratory failure: 2/ PNA/COPD -on 0.5L NC -echo unremarkable *PNA & (+)Human Metapneumovirus w/ALI: -BC/SC neg *AECOPD(2L@night at home only): *Oropharyngeal Dysphagia,mild: *Hyponatremia, chronic: But worsened on admit from previous labs, now Improved -is on SSRI and HCTZ *HTN/HLD: *Hypothyroidism: TSH wnl *Depression/anxiety: *Tobacco abuse: Discharge diagnosis: Viral pneumonia COPD exacerbation hyponatremia hypertension hypothyroidism Secondary discharge diagnosis: Tobacco abuse depression anxiety - Time Spent with Patient Total time spent providing and/or coordinating discharge services: Greater than 30 minutes Medical - DS: Exam - Constitutional Vitals: Vital Signs Temp Pulse Pulse Resp BP BP Pulse Ox 09/27/19 07:20 97.2 F 75 18 122/64 93 09/27/19 04:36 97.8 F 83 22 141/84 96 09/27/19 01:05 97.9 F 74 20 144/74 94 09/26/19 21:00 97.8 F 82 20 137/72 91 09/26/19 20:35 93 09/26/19 20:10 83 20 09/26/19 16:00 97.7 F 73 18 139/68 93 09/26/19 13:29 86 16 09/26/19 12:00 98.0 F 95 H 22 144/71 93 Intake and Output 09/26/19 09/27/19 09/27/19 21:59 05:59 13:59 Intake Total 240 400 250 Output Total 1200 550 Balance -960 -150 250 Intake: Oral 240 400 250 Output: Void Amount 1200 550 Other: Meal Lunch Breakfast Percent of Meal Consumed 100% 100% Feeding Ability Assist with Tray Set Up Independent Urine Appearance Clear Urine Color Bright Yellow Urine Odor Normal Weight 66.791 kg Medical - DS: A/P - Patient/Caregiver Discharge Instructions Activity: increase activity as tolerated Diet: Regular Diet - Follow up Plan Follow up with: Chiquita Carrillo ARNP [Primary Care Provider] - Disposition: Home, Self-Care Prognosis: Fair Rehab Potential: Fair Overall status at discharge: patient is back to baseline Medical - DS: Qual - VTE Deep Vein Thrombosis/Pulmonary Embolism Present on Admission: No
== END 2019-09-27 14:00 | disposition home or self-care (01) | DRG 193 ==
LOC: ED 05:10 → MEDSUR 14:27
PROVIDERS: ADMIT Internal Medicine; ATTEND Internal Medicine